=== PATIENT | male | born 1970 | race Caucasian/White ===

== ENCOUNTER 2017-01-01 14:38 | Observation (INO) | payer OTHER ==
[~2017-01-01] VITALS: Ht 172.7 cm; Wt 79.2 kg
[2017-01-01 14:40] VITALS: BP 121/75; PULSE 66; RESP 20; O2SAT 98
[2017-01-01 15:04] LABS: BASOPHILS % (AUTO) 0.2 % (0-3); EOSINOPHILS % (AUTO) 0.7 % (0-5); MONOCYTES % (AUTO) 6.3 % (4-12); Mean Corpuscular Hemoglobin 29.8 pg (27.0-35.0); Mean Corpuscular Volume 87.8 fL (81-100); NEUTROPHILS % (AUTO) 54.2 % (40-74); Platelet Count 271 bil/L (150-400)
[2017-01-01 15:28] LABS: TROPONIN T < 0.010 ug/L (0.0-0.011)
--- NOTE | 2017-01-01 15:35 | ED.REPORT ---
HPI-Chest Pain 40 and Over Date of Service Jan 01, 2017 ED Provider: Virgilio Benavides MD Pt is a 46 y.o. male who presents to the ED from c/o intermittent sharp chest pain onset 2 weeks ago. He states that the pain migrates and is not consistent in any location on his chest. He states that episodes last for less than a minute. He claims that the chest pain is aggravated by food and exertion. He reports taking 1 ASA, 3 ibuprofen, and 1 of his father's nitro with no significant relief. He also reports associated SOB and fatigue. He denies fever, nausea, vomiting, and diaphoresis. He denies a hx of HTN and smoking. Pt has a family hx of CAD. Nursing Notes Stated Complaint: CHEST PAIN Chief Complaint: Chest Pain Nursing Notes Reviewed: Yes Allergies: Coded Allergies: No Known Allergies (Unverified , 01/01/17) Scheduled Aspirin (Aspirin) 325 Mg Tablet 325 MG PO BID Scheduled PRN Acetaminophen (Acetaminophen) 325 Mg Tablet 650 MG PO Q4H PRN PRN For Pain Ibuprofen (Advil) 200 Mg Capsule 400-600 MG PO Q6 PRN PRN For Pain General Time Seen by MD: 14:56 Chief Complaint Chest pain Hx Obtained From: Patient Arrived By: Walk-in Sudden in Onset?: Yes Symptom Duration: Intermittent Location: : Chest left: Chest right: Substernal Quality: Painful Severity: Current: No pain currently Past Medical History Past Medical History Denies Past Surgical History Reports: Appendectomy Ambulatory Status Independent Review of Systems Constitutional: Reports: Fatigue, Denies: Fever Respiratory: Reports: Shortness of breath Cardiovascular: Reports: Chest pain GI: Denies: Nausea, Vomiting Skin: Denies Diaphoresis Complete sys rev & neg: except as marked. Physical Exam Initial Vital Signs Vital Signs (First) Date Time Temp Pulse Resp B/P Pulse Ox O2 Delivery O2 Flow Rate FiO2 01/01/17 14:40 36.4 66 20 121/75 98 Room Air Initial VS: Reviewed Head / Eyes: Atraumatic, Normocephalic, PERRL Extremities: Vascular intact, Neuro intact Skin: Warm, Dry, No cyanosis Neurologic: Alert, Oriented, Nonfocal Psychiatric: Mood/affect normal, Behavior normal, Normal thought content General/Constitutional: Awake, Alert, Well appearing, Well developed, Well hydrated, Well nourished, Not toxic appearing Respiratory / Chest: Atraumatic, Breath sounds NL, Breath sounds = bilat, No respiratory distress Cardiovascular: Heart rate NL, Regular rhythm, Heart sounds NL, No gallop, No murmurs, No rubs, Cap refill not delayed, Peripheral circulation NL Abdomen: Atraumatic, Soft, Non-tender, No guarding, No rebound, BS normoactive , No distention Interpretation & Diagnostics Lab Results Interpretation Result Diagram: 01/01/17 1455 01/01/17 1455 Test 01/01/17 14:55 01/01/17 17:30 White Blood Count 4.1th/mm3 (3.8-10.1) Red Blood Count 4.43mil/mm3 (4.40-5.80) Hemoglobin 13.2g/dL (13.8-17.2) Hematocrit 38.9% (41.0-50.0) Mean Corpuscular Volume 87.8fL (81-100) Mean Corpuscular Hemoglobin 29.8pg (27.0-35.0) Mean Corpuscular Hemoglobin Concent 33.9% (32.0-37.0) Red Cell Distribution Width 12.8% (12.3-15.4) Platelet Count 271bil/L (150-400) Neutrophils (%) (Auto) 54.2% (40-74) Lymphocytes (%) (Auto) 38.6% (14-46) Monocytes (%) (Auto) 6.3% (4-12) Eosinophils (%) (Auto) 0.7% (0-5) Basophils (%) (Auto) 0.2% (0-3) Sodium Level 136mEq/L (134-144) Potassium Level 3.7mEq/L (3.5-5.2) Chloride Level 97mEq/L (97-108) Carbon Dioxide Level 23mmol/L (18-29) Blood Urea Nitrogen 12mg/dL (6-24) Creatinine 0.68mg/dL (0.76-1.27) Estimat Glomerular Filtration Rate 132mL/min (>59) Glucose Level 99mg/dL (60-99) Calcium Level 9.9mg/dL (8.5-10.1) Total Bilirubin 0.4mg/dL (0.0-1.2) Aspartate Amino Transf (AST/SGOT) 32U/L (0-50) Alanine Aminotransferase (ALT/SGPT) 27U/L (0-44) Alkaline Phosphatase 46U/L (25-150) Total Protein 7.5g/dL (6.4-8.4) Albumin 4.7g/dL (3.4-5.0) Magnesium Level 2.0mg/dL (1.6-2.6) Total Creatine Kinase 329U/L (21-232) Creatine Kinase MB 6.0ng/mL (0.0-10.4) Creatine Kinase MB % 0.0% (0.0-5.0) Troponin T < 0.010ug/L (0.0-0.011) Thyroid Stimulating Hormone (TSH) 0.862uIU/mL (0.450-4.500) ECG Interpretation Time: 14:58 Interpreted by: ED physician Normal ECG Interpretation: Normal rate (59), Normal sinus rhythm, No acute ischemic changes, Normal intervals ECG Interpretation: EKG from Time: 14:03 Interpreted by: ED physician Normal ECG Interpretation: Normal rate (71), Normal sinus rhythm, No acute ischemic changes, Normal QRS, Normal intervals X-Ray Chest Interpretation Chest Xray Interpretation: IMPRESSION: No acute cardiopulmonary disease process. Dictated by: Lilly Villalba MD, PhD on 01/01/2017 at 15:36 Approved by: Lilly Villalba MD, PhD on 01/01/2017 at 15:36 Re-Eval/Medical Decision Med Decision/Clinical Course 46-year-old male with a family history of early coronary disease. He appears to be remarkably healthy and has a history of being remarkably healthy for the last 2 weeks he has had a consistent issue with chest pain provoked by exertion and generalized fatigue. He does not have any objective findings for an acute coronary syndrome tonight, I find his family history and history of present illness very worrisome and he is not connected with primary care therefore is unlikely to have provocative testing performed in a timely fashion. Will be admitted to the hospitalist service on observation status for formal rule out and hopefully provocative testing Source of Hx: Old records Time of Eval: 16:45 Re-Evaluation/Progress Note: Pt rechecked. Pt's chest pain has resolved. Discussed imaging and lab results and plan for admit with stress test. Pt declines admission. Further discussed need for admission and stress test due to pt not having a PCP. Pt understands and agrees with plan. Consultation : Referral / Consult Name: Macario Macdonald MD Consulted With: Hospitalist Call Returned at: 17:11 School Childcare Attendant: Will see patient, Agrees with eval, Agrees with plan, Accepts admit Note: Discussed pt condition. Accepts admit. Counseled Regarding: Diagnosis, Lab results, Need for follow-up, When/why to return to ED Discharge & Departure Primary Impression: Chest pain, rule out acute myocardial infarction Disposition: ADMITTED TO HOSPITAL Discharge Condition All VS Reviewed: Yes Condition: Improved Referrals: [facility] Attestation Portions of this note were transcribed by [place]. I, Dr. Benavides personally performed the history, physical exam and medical decision-making; I reviewed and confirmed the accuracy of the information in the transcribed note. Signed by: Rodo Briseno, 01/01/17 and 0495 copies to: [facility] Virgilio Benavides MD Jan 01, 2017 15:35 [place] Jan 01, 2017 15:38
[2017-01-01 15:38] LABS: Magnesium 1.9 mg/dL (1.6-2.6)
--- NOTE | 2017-01-01 15:38 | DRSVH ---
PROCEDURE: X-RAY CHEST ONE VIEW, PORTABLE ([id number]) INDICATIONS: chest pain TECHNIQUE: One view of the chest was acquired. COMPARISON: None. FINDINGS: Surgical changes and devices: None. Lungs and pleura: No pleural effusions or pneumothorax. Lungs are clear. Mediastinum: Mediastinal contours appear normal. Heart size is normal. Bones and chest wall: No suspicious bony lesions. Overlying soft tissues appear unremarkable. IMPRESSION: No acute cardiopulmonary disease process. Dictated by: Lilly Villalba MD, PhD on 01/01/2017 at 15:36 Approved by: Lilly Villalba MD, PhD on 01/01/2017 at 15:36
[2017-01-01 17:00] VITALS: BP 119/73; PULSE 63; RESP 18; O2SAT 97
[2017-01-01] MEDS ORDERED: Alum-Mag Hydrox-Simeth 30 mL Suspension PO PRN (17:15)
[2017-01-01] MEDS ORDERED: HYDROcodone-APAP 5-325 mg Tablet PO PRN (17:15)
[2017-01-01] MEDS ORDERED: Senna-Docusate 8.6-50 mg Tablet PO PRN (17:15)
[2017-01-01] MEDS ORDERED: Ondansetron 2 mg/mL 2 mL Inj IVPUSH PRN (17:15)
[2017-01-01] MEDS ORDERED: Polyethylene Glycol (PEG) 17 Gm Powder PO PRN (17:15)
[2017-01-01 17:37] VITALS: BP 119/73; PULSE 63; RESP 18; O2SAT 97
[2017-01-01 18:06] VITALS: BP 113/72; PULSE 60; RESP 16; O2SAT 100
[2017-01-01 18:07] VITALS: PULSE 63
[2017-01-01] MEDS: 0.9% Sodium Chloride 1,000 ML IV SCH (18:22)
[2017-01-01] MEDS ORDERED: IBUP200C11 PO (18:27)
[2017-01-01] MEDS ORDERED: ASPI325T32 PO (18:28)
[2017-01-01] MEDS ORDERED: ACET325T51 PO (18:29)
[2017-01-01 18:38] LABS: Creatine Kinase 329 U/L (21-232)
[2017-01-01 18:39] LABS: TROPONIN T < 0.010 ug/L (0.0-0.011)
--- NOTE | 2017-01-01 18:47 | NUR ---
Ad[place] [facility] [place] 1755[place] assumed care. patient A&Ox3, pleasant, calm and cooperative. he reports having episodic chest pain described as sharp on/off for the last 1-2 weeks. episodes last about a minute and resolve on own. patient reports that pain becomes more frequent with eating and activity. denies CP/SOB now.
--- NOTE | 2017-01-01 19:01 | PCM.HPMED ---
Subjective Date of Service Jan 01, 2017 Primary Provider: Admitting Physician: Macario Macdonald MD Primary Care Physician: Nopcp Attending Physician: Macario Macdonald MD Chief Complaint: Chest pain History of Present Illness: 46-year-old male who has been having left-sided/retrosternal chest pain, pins and needles for brief periods of time less than 5 minutes that it is not exertionally related. Today he had an episode while he was on his riding mower , felt cold all over, got in his hot tub still felt the chest pain and that is when he elected to come in. He relates that he has not been feeling well for the last month and had substantial decrease in energy and capacity. He has not been eating particularly in the morning as he found that eating seems to aggravate the pain, so on work days he is avoided breakfast. This morning he ate breakfast. He is hungry. He has lost about 15 pounds in the last month because of change in eating habits. Review of Systems: Gen.: No fevers chills weight gain + weight loss Eyes: no visual disturbances or blurring vision HEENT: No nose/throat drainage, no pain in ears or throat, no hearing loss Lymph: No lymph nodes noted Cardiac: No orthopnea, PND, palpitations , pedal edema or dyspnea on exertion + chest pain Pulmonary: no cough, wheezing or bringing up of sputum GI: No nausea vomiting blood or black in the stool, + started avoiding food does not seem to make it a little better but not so much : no dysuria hematuria urinary frequency or decrease in urine output Musculoskeletal: Joint swelling no joint pain no new muscle aches or back pain Neuro: No syncope, seizures no loss of consciousness no new focal weakness, numbness or tingling Psychiatric: New new anxiety insomnia or depression Endocrine: No new heat or cold intolerances polyuria or polydipsia Hematology: No lymphadenopathy or easy bleeding or bruising noted skin: No new rashes, stasis dermatitis Allergies Coded Allergies: No Known Allergies (Unverified , 01/01/17) Home Medications None PMH Social History Hx Alcohol Use: Yes (1 beer every few days) Hx Substance Use: No Exam Vital Signs Vital Sign - Last Date Time Temp Pulse Resp B/P Pulse Ox O2 Delivery O2 Flow Rate FiO2 01/01/17 18:07 63 01/01/17 18:06 36.7 16 113/72 100 Room Air Exam Gen.- A+ O 3 no apparent distress. Thin well-nourished tanned male Eyes- open conjunctiva clear, pupils equal nonicteric Mouth- oral mucosa moist, no exudate ENT- ears normal, nose normal Neck- supple/trach midline CVS- RRR no murmur or gallop Lungs CTA GI- NABS/NT soft Musc- moving 4 no obvious deformity Neuro- cranial nerves II through XII intact to gross examination, nonfocal Skin- warm and dry, no rashes/lesions/wounds noted Psych- pleasant and appropriate, Lab and Diagnostics Result Diagram: 01/01/17 1455 01/01/17 1455 X-Rays, CTs and MRIs X-RAY CHEST ONE VIEW, PORT: Lilly Villalba MD, PhD on 01/01/2017 at 15:36 IMPRESSION: No acute cardiopulmonary disease process. Dictated by: iLlly Villalba MD, PhD on 01/01/2017 at 15:36 12-lead ECG EKG 01/01/[birth year]10/[birth year]/1957 reviewed by Renae Sinus rhythm with a rate of 59 Abnormal R wave progression and early transition QTC 416 ms Assessment & Plan 46-year-old male presents with substernal chest pain is not exertional but made the his father got his first stent. Chest pain- r/o [place] protocol by enzymes, check lipids -We will check echocardiogram just given description and/symptoms of fatigue -We will do stress Myoview in the a.m. Prophylaxis-DVT with enoxaparin/SCDs, GI will try H2 RA and GI cocktail Disposition-full code from home Macario Macdonald MD Jan 01, 2017 19:01
[2017-01-01] MEDS ORDERED: LidocaineVisc 2%:Antacid 1:1 10 mL Syringe PO SCH (19:40)
[2017-01-01 20:21] VITALS: BP 124/70; PULSE 57; RESP 18; O2SAT 100
--- NOTE | 2017-01-01 22:55 | NUR ---
Headache Pt c/o headache 10/08 (although he doesn't believe in above 5) so it was a mild-moderate headache that was "annoying". Gave pt tylenol 325mg. He stated that he rarely takes anything, but 325mg wasn't even going to touch it. [place] 5-325 was given and pt stated that headache was still there but manageable.
[2017-01-02 00:06] LABS: Creatine Kinase 280 U/L (21-232)
[2017-01-02] MEDS: Sodium Chloride LOK Flush 10 mL Syringe IVFLUSH SCH ×2 (00:30→08:30)
[2017-01-02 00:47] VITALS: BP 107/65; PULSE 70; RESP 16; O2SAT 99
[2017-01-02 05:45] VITALS: PULSE 70
[2017-01-02] MEDS: 0.9% Sodium Chloride 1,000 ML IV SCH (05:55)
[2017-01-02 06:15] VITALS: BP 113/76; PULSE 54; RESP 16; O2SAT 98
[2017-01-02 06:28] LABS: BASOPHILS % (AUTO) 0.5 % (0-3); EOSINOPHILS % (AUTO) 2.4 % (0-5); MONOCYTES % (AUTO) 9.5 % (4-12); Mean Corpuscular Hemoglobin 29.7 pg (27.0-35.0); Mean Corpuscular Volume 87.6 fL (81-100); NEUTROPHILS % (AUTO) 33.6 % (40-74); Platelet Count 247 bil/L (150-400)
[2017-01-02 10:04] VITALS: BP 113/70; PULSE 59; RESP 17; O2SAT 98
[2017-01-02 10:33] VITALS: PULSE 82
--- NOTE | 2017-01-02 13:16 | DRSVH ---
PROCEDURE: EITHER REST OR STRESS ONLY Exercise myocardial perfusion SPECT with gated imaging and ejection fraction RADIOPHARMACEUTICAL: 20.1 mCi Tc-99m tetrafosmin IV at peak exercise. INDICATIONS: CHEST PAIN. TECHNIQUE: Radiopharmaceutical was injected at peak stress test. SPECT images were obtained, with p erfusion images in short axis, horizontal long axis, and vertical long axis views. Gated images were reviewed using Omada software. COMPARISON: None. CARDIAC STRESS: A standard Bon treadmill exercise tolerance test was performed by the patient under the supervision of an attending staff. The patient exercised for 12 minutes and 0 seconds. Hemodynamic data: There is normal blood pressure and heart response to exercise. Patient achieved 9 8% of maximum predicted heart rate. Symptoms: Patient reported two transient (seconds) episodes of chest discomfort. EKG: No diagnostic changes of ischemia; no ectopy. FINDINGS: Raw data: There is good labeling of myocardium by radiotracer. No significant motion artifacts. ). Left ventricular function: Gated images demonstrate normal left ventricle wall thickening. No segme ntal wall motion abnormalities. Left ventricle end diastolic volume is 95mL. Left ventricle stress ejection fraction is 67% ; normal values are above 45%. Myocardial perfusion: There is a small area of mildly decreased uptake affecting the basal inferolat eral wall that completely normalizes on the prone images making this finding more likely related to artifact. No other imaging defects appreciated. IMPRESSION: 1. Appropriate hemodynamic response to exercise. 2. Two (lasting seconds) episodes of atypical chest pain without significant ECG changes with stress. 3. No scintigraphic evidence for significant areas of myocardial ischemia at the level of stress achi eved. 4. Normal left ventricular size and systolic function. Dictated by: Brittni Jama M.D. on 01/02/2017 at 13:09 Approved by: Brittni Jama M.D. on 01/02/2017 at 13:14
[2017-01-02 13:27] VITALS: BP 116/70; PULSE 68; RESP 17; O2SAT 98
--- NOTE | 2017-01-02 15:18 | PCM.DC.MED ---
Discharge Summary Date of Service Jan 02, 2017 Dates of Hospitalization Date of Hospital Admission Jan 01, 2017 at 17:34 Date of Discharge: Jan 02, 2017 Providers: Admitting Physician: Anand Macdonald MD Primary Care Physician: Nopelmo Attending Physician: Anand Macdonald MD Procedures XRay, CTs & MRIs X-RAY CHEST ONE VIEW, PORT: Lilly Villalba MD, PhD on 01/01/2017 at 15:36 IMPRESSION: No acute cardiopulmonary disease process. Dictated by: Lilly Villalba MD, PhD on 01/01/2017 at 15:36 ECG 12 Lead EKG 01/01/1410/[birth year]/1957 reviewed by Renae Sinus rhythm with a rate of 59 Abnormal R wave progression and early transition QTC 416 ms Cardiac Echo Impression Echocardiogram Report: Kalee Jama on 01/02/2017 1. Normal left ventricular size, wall thickness with an estimated EF of 50- 55% 2. Normal right ventricular size and systolic function. 3. No valvular pathology appreciated There is no old study for comparison Reading Physician:04:48 PM Other Diagnostics Myoview EITHER REST OR STRESS ONLY: Brittni Jama M.D. on 01/02/2017 at 13: 09 1. Appropriate hemodynamic response to exercise. 2. Two (lasting seconds) episodes of atypical chest pain without significant ECG changes with stress. 3. No scintigraphic evidence for significant areas of myocardial ischemia at the level of stress achieved. 4. Normal left ventricular size and systolic function. Dictated by: Brittni Jama M.D. on 01/02/2017 at 13:09 Brief History 46-year-old male who has been having left-sided/retrosternal chest pain, pins and needles for brief periods of time less than 5 minutes that it is not exertionally related. Today he had an episode while he was on his riding mower , felt cold all over, got in his hot tub still felt the chest pain and that is when he elected to come in. He relates that he has not been feeling well for the last month and had substantial decrease in energy and capacity. He has not been eating particularly in the morning as he found that eating seems to aggravate the pain, so on work days he is avoided breakfast. This morning he ate breakfast. He is hungry. He has lost about 15 pounds in the last month because of change in eating habits. Hospital Course 46-year-old male presents with substernal chest pain is not exertional but made the his father got his first stent. 01/02 patient cooks continues to have brief episodes of this chest pain. It may be GI, versus musculoskeletal. Chronic back and neck issues that he ignores. He denies having issues with heartburn however I am recommending that he start on famotidine or PPI for months and find himself a primary care provider. Chest pain- r/o [place] protocol by enzymes, enzymes normal, lipids good -echocardiogram normal as noted above -Myoview normal as above Prophylaxis-DVT with enoxaparin/SCDs, GI will try H2 RA and GI cocktail Disposition-full code from home Exam Vital Signs (Last) Date Time Temp Pulse Resp B/P Pulse Ox O2 Delivery O2 Flow Rate FiO2 01/02/17 13:27 36.3 68 17 116/70 98 Room Air Exam Gen.- A+ O 3 no apparent distress. Thin well-nourished tanned male Eyes- open conjunctiva clear, pupils equal nonicteric ENT- ears normal, nose normal Neck- supple/trach midline CVS- RRR Lungs nonlabored normal rate GI-flat Musc- moving 4 no obvious deformity Neuro- cranial nerves II through XII intact to gross examination, nonfocal Skin- warm and dry, no rashes/lesions/wounds noted Psych- pleasant and appropriate, Test 01/01/17 14:55 01/01/17 17:30 01/01/17 23:06 01/02/17 05:55 Hemoglobin A1c 5.7% (4.8-5.6) Total Bilirubin 0.4mg/dL (0.0-1.2) Aspartate Amino Transf (AST/SGOT) 32U/L (0-50) Alanine Aminotransferase (ALT/SGPT) 27U/L (0-44) Alkaline Phosphatase 46U/L (25-150) Total Protein 7.5g/dL (6.4-8.4) Albumin 4.7g/dL (3.4-5.0) Magnesium Level 2.0mg/dL (1.6-2.6) Troponin T < 0.010ug/L (0.0-0.011) Thyroid Stimulating Hormone (TSH) 0.862uIU/mL (0.450-4.500) Total Creatine Kinase 280U/L (21-232) Creatine Kinase MB 5.1ng/mL (0.0-10.4) Creatine Kinase MB % % (0.0-5.0) White Blood Count 3.7th/mm3 (3.8-10.1) Red Blood Count 4.28mil/mm3 (4.40-5.80) Hemoglobin 12.7g/dL (13.8-17.2) Hematocrit 37.5% (41.0-50.0) Mean Corpuscular Volume 87.6fL (81-100) Mean Corpuscular Hemoglobin 29.7pg (27.0-35.0) Mean Corpuscular Hemoglobin Concent 33.9% (32.0-37.0) Red Cell Distribution Width 13.1% (12.3-15.4) Platelet Count 247bil/L (150-400) Neutrophils (%) (Auto) 33.6% (40-74) Lymphocytes (%) (Auto) 53.7% (14-46) Monocytes (%) (Auto) 9.5% (4-12) Eosinophils (%) (Auto) 2.4% (0-5) Basophils (%) (Auto) 0.5% (0-3) Sodium Level 140mEq/L (134-144) Potassium Level 4.5mEq/L (3.5-5.2) Chloride Level 103mEq/L (97-108) Carbon Dioxide Level 24mmol/L (18-29) Blood Urea Nitrogen 10mg/dL (6-24) Creatinine 0.71mg/dL (0.76-1.27) Estimat Glomerular Filtration Rate 126mL/min (>59) Glucose Level 88mg/dL (60-99) Calcium Level 9.6mg/dL (8.5-10.1) Triglycerides Level 99mg/dL (0-149) Cholesterol Level 148mg/dL (100-199) LDL Cholesterol, Calculated 81.200mg/dL (0-99) VLDL Cholesterol 19.800mg/dL HDL Cholesterol 47mg/dL (>39) Cholesterol/HDL Ratio 3.15 (0.0-4.4) Discharge Medications Discharge Medications Omeprazole (Omeprazole) 40 Mg Capsule.dr 40 MG PO DAILY Prescribed by: ANAND MACDONALD MD As needed Acetaminophen (Acetaminophen) 325 Mg Tablet 650 MG PO Q4H PRN PRN For Pain ( Reported) Ibuprofen (Advil) 200 Mg Capsule 400-600 MG PO Q6 PRN PRN For Pain (Reported) Followup Plan Disposition: Patient's going home Follow-up plan Recommending he find a primary care provider and perhaps get a referral to a brushing operator Discharge Diet: No restrictions Discharge Activity: No restrictions Time spent Greater than 30 minutes Anand Macdonald MD Jan 02, 2017 15:18
--- NOTE | 2017-01-02 15:25 | PCM.DIMED ---
Discharge Instructions Date of Service Jan 02, 2017 Dates of Hospitalization Jan 01, 2017 at 17:34 Discharge Diagnosis Discharge Diagnosis Chest pain noncardiac Diet Discharge Diet: No restrictions Activity Discharge Activity: No restrictions Patient Instructions Follow-up plan Recommending he find a primary care provider and perhaps get a referral to a grounds cleaner Attending's Statement Try Prilosec/omeprazole [id number] and I have written a prescription perhaps Pepcid would do this and perhaps trial of ibuprofen/Naprosyn and/or acetaminophen for the ongoing pains. The next things to workup that could be the etiology of some pressure symptoms are musculoskeletal and gastroenterologic Macario Macdonald MD Jan 02, 2017 15:25
--- NOTE | 2017-01-02 15:34 | NUR ---
Social Work Note: Screen Note Data& Assessment: EMR reviewed. Per pt is medically ready for discharge. Efren Faustin is a 46 year old male under observation for chest pain. Per pt is medically improved and ready for discharge. SW met with pt at bedside to confirm discharge plan and assess for any unmet needs. Pt lives in [place] alone but has his parents living on his property as well. Pt independent at baseline and denies any needs. Pt declined SW aid in establishing PCP for him. Pt provided with [employer] application due to being listed as self pay. Pt explained his insurance lapsed but he purchased a three month plan and is working on getting verification of his insurance coverage for the hospital. Pt accepted financial center manager application just in case. Pt family transporting pt home today. Pt denies any other needs. No other discharge needs identified. Plan: Per pt is medically ready to discharge home via POV. Pt denies any other needs. No other discharge needs identified. SUMIT Kendrick
[2017-01-02] MEDS ORDERED: OMEP40CA36 PO (15:35)
--- NOTE | 2017-01-02 16:49 | DRSVH ---
[facility] [address] [place] [address] Echocardiogram Report Name: URI SPAIN BStudy Date: 10/2016 Height: 68 in Hospital Exam Location: [facility] Weight: 175 lb Gender: Male BSA: 1.9 m2 : 1970 Age: 46 yrs BP: 113/76 mm Hg Reason For Study: Chest pain Ordering Physician: HOSPITALIST [facility] Performed By: Vishnu Walters Referring Physician: ANAND WOODS Interpretation Summary 1. Normal left ventricular size, wall thickness with an estimated EF of 50- 55% 2. Normal right ventricular size and systolic function. 3. No valvular pathology appreciated There is no old study for comparison Procedure: A two-dimensional transthoracic echocardiogram with color flow and Doppler was performed. The study quality was technically good. There is no prior echocardiogram noted for this patient. The patient was in sinus bradycardia with heart rates between 54-59 bpm during the exam. Left Ventricle: The left ventricle is normal in size. There is normal left ventricular wall thickness. The ejection fraction is estimated to be 50-55%. There are no focal wall motion abnormalities. Assessment of diastolic parameters indicates normal left ventricular diastolic function and normal filling pressures. Right Ventricle: The right ventricle is normal size. The right ventricular systolic function is normal. Atria: The left atrial size is normal. Right atrial size is normal. No color doppler evidence for an ASD. Mitral Valve: The mitral valve is normal. There is trace mitral regurgitation. Aortic Valve: The aortic valve is normal in structure and function. No aortic regurgitation is present. Tricuspid Valve: The tricuspid valve is normal. There is trace tricuspid regurgitation. The right ventricular systolic pressure is estimated at 22 mmHg assuming a right atrial pressure of 8 mm Hg. Pulmonic Valve: The pulmonic valve leaflets are thin and pliable; valve motion is normal. There is no pulmonic valvular regurgitation. Great Vessels: The aortic root is normal size. The dimensions of the ascending aorta are normal. The pulmonary artery is normal size. The IVC is dilated (diameter is greater than 2.1 cm) yet it collapses greater than 50% with a sniff. This suggests a right atrial pressure of 8 mm Hg. Pericardium/ Pleura There is no pericardial effusion. There is no pleural effusion. MMode/2D Measurements & Calculations LVIDd: 5.3 cm LA A2 area RA long axis: 4.4 cm LVOT diam: 2.3 cm LVIDs: 3.3 cm AoV Openin.9 cm FS: 37.6 % RA area: 16.6 cm Ao root diam: 3.2 cm EPSS: 0.25 cm LA A4 area RA vol: 53.1 ml asc Aorta Diam: 3.2 cm IVSd: 0.80 cm RA : 27.5 ml/m2 Ao Arch Diam (Prox LVPWd LA length (vol) Trans): 2.7 cm : 0.6cm LA vol: 52.6 ml LA vol index IVC diam: 2.5 cm LVAd ap4 LVAd ap2 LV jesus. diameter/BSA LV sys. diameter/BSA : 25.0 2m : 28.2 cm (cm/m^2): 2.8 (cm/m^2): 1.7 LVLd ap2: 8.2 cm EDV(MOD-sp2) EDV(sp2-el) : 84.0 ml RVD1 (basal) TAPSE: 2.6 cm Doppler Measurements & Calculations Ao V2 max MV E max dexter MV E/A: 1.5 TR max dexter : 129.2 cm/sec : 65.5 cm/sec Med Peak E' Dexter : 186.2 cm/sec Ao max P.7 mmHg MV A max dexter TR max PG Ao mean P.0 mmHg : 44.2 cm/sec E/E' med: 6.3 : 13.9 mmHg LVOT Max Dexter Lat Peak E' Dexter PA V2 max : 96.2 cm/sec : 96.7 cm/sec SAMEER(I,D): 2.8 cm E/E' lat: 5.0 PA mean PG sev ratio: 0.65 E/e' average: 5.7 : 2.4 mmHg MV dec time: 0.18 sec Ao V2 mean LV V1 max PG PA V2 mean : 96.5 cm/sec : 75.3 cm/sec Ao V2 VTI LV V1 VTI: 16.2 cm PA pr(Accel) : 17.3 mmHg SAMEER(V,D): 3.2 cm2 SAMEER indexed to BSA (cm^2/m^2): 1.4 Reading Physician:04:48 PM
--- NOTE | 2017-01-02 17:24 | NUR ---
Discharge of patient Reviewed discharge instructions with patient. Patient verbalized understanding. Patient discharged with prescription and instructions. IV and telemetry previously discontinued. Pt left hospital to home self care.
== END 2017-01-02 16:45 | disposition home or self-care (01) ==
LOC: SED 14:38 → MPC 17:34
PROVIDERS: ADMIT Hospitalist; ATTEND Hospitalist
DX: R07.2 Precordial pain (principal); R12 Heartburn; Z82.49 Family history of ischemic heart disease and other diseases of the circulatory system
CPT/HCPCS: 36415; 71010; 78451; 80048; 80053; 80061; 82550; 82553; 82948; 83036; 83735; 84443; 84484; 85025; 93005; 93017; 99285; A9502; C8929; G0378; J1650; J7030